=== PATIENT | male | born 1945 | race Caucasian/White ===

== ENCOUNTER 2017-06-02 01:49 | Inpatient (IN) | payer OTHER, MEDICARE ==
[~2017-06-02] VITALS: Ht 175.3 cm; Wt 119.7 kg
[~2017-06-02 01:49] MED LIST: ATIVAN0.5 M1 PO; BEVESPI AEROS10.7 GM IH; CARDIZEM CD240 M1 PO; COLACE100 M1 PO; COMBIVENT RESPIM4 GM INH; COSENTYX P150 MG/11 SC; CRESTOR10 M1 PO; FLONASE ALLERG9.9 ML NASB; GLUCOPHAGE1000 M1 PO; HYDROCHLOROTHIA25 M1 PO; LOPRESSOR50 M1 PO; MUCINEX600 M1 PO; OMEPRAZOLE40 M1 PO; PATADAY2.5 ML OPH; PRADAXA150 M1 PO; TEMOVATE30 GM TOP; TYLENOL325 M1 PO; ZANTAC150 M1 PO; ZYRTEC10 M3 PO
--- NOTE | 2017-06-02 11:55 | Admission Core Measures ---
Acute Coronary Syndrome (CM) ACS Core Measures Acute Coronary Syndrome Diagnosis No Congestive Heart Failure (NEW) CHF Core Measures Congestive Heart Failure Diagnosis No Cerebrovascular Accident (NEW) CVA Core Measures CVA/TIA Diagnosis No Venous Thromboembolism VTE Core Joe (View Protocol) VTE Risk Factors Surgery No Mechanical VTE Prophylaxis d/t N/A MechProphylax Ordered No VTE Pharm Prophylaxis d/t NA PharmProphylax ordered Problem List As ranked by this Provider includes Assessment & Plan 1. Status post total hip replacement, left HOME MEDS Home Med List Acetaminophen (Tylenol) 325 MG TABLET 4 TAB PO Q8P PRN PAIN (Reported) Cetirizine HCl (Zyrtec) 10 MG TABLET 1 TAB PO DAILY ALLERGY (Reported) Clobetasol Propionate (Temovate) 0.05 % CREAM..G. 1 MANAS TOP BID ITCHINESS ( Reported) Dabigatran Etexilate Mesylate (Pradaxa 150 MG) 150 MG CAPSULE 1 CAP PO BID AFIB (Reported) Diltiazem HCl (Cardizem Cd) 240 MG CAP.ER.24H 1 CAP PO DAILY BP (Reported) Docusate Sodium (Colace) 100 MG CAPSULE 1 CAP PO BID PRN STOOL SOFTENER ( Reported) Fluticasone Propionate (Flonase Allergy Relief) 50 MCG/ACTUATION SPRAY.SUSP 2 NS NASB DAILY ALLERGIES (Reported) Glycopyrrolate/Formoterol Fum (Bevespi Aerosphere Inhaler) 9 MCG-4.8 MCG HFA.AER.AD 2 INH IH BID ASTHMA (Reported) Guaifenesin (Mucinex) 600 MG TAB.ER.12H 1 TAB PO BID ALLERGIES (Reported) Hydrochlorothiazide 25 MG TABLET 1 TAB PO DAILY BP (Reported) Ipratropium/Albuterol Sulfate (Combivent Respimat Inhal [place]) 20 MCG-100 MCG/ ACTUATION MIST.INHAL 2 INH INH Q6-PRN PRN ASTHMA (Reported) Lorazepam (Ativan) 0.5 MG TABLET 1 TAB PO EVERY 6HRS- NEEDED ANXIETY ( Reported) Metformin HCl (Glucophage) 1,000 MG TABLET 1 TAB PO BID DIABETES (Reported) Metoprolol Tartrate (Lopressor) 50 MG TABLET 1 TAB PO BID BP (Reported) Olopatadine HCl (Pataday) 0.2 % DROPS 1 GTT OPH DAILY UNKNOWN (Reported) Omeprazole 40 MG CAPSULE.DR 1 CAP PO DAILY REFLUX (Reported) Ranitidine HCl (Zantac) 150 MG TABLET 1 TAB PO WITH DINNER REFLUX (Reported) Rosuvastatin Calcium (Crestor) 10 MG TABLET 1 TAB PO DAILY CHOLESTEROL ( Reported) Secukinumab (Cosentyx Pen (2 Pens)) 150 MG/ML PEN.INJCTR 150 MG SC Q30D PSORAITIC ARTHRITIS (Reported)
--- NOTE | 2017-06-02 11:56 | Surg Short-stay <48hrs Dis Sum ---
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 Procedure was tolerated well and patient was transferred to a general surgical floor. Diet was advanced and tolerated. Physical therapy performed evaluation and treatment. At time of hospital discharge, vital signs were stable, neurovascular status was intact and pain was controlled with the use of oral pain medications. Condition at Discharge: Stable Discharge Disposition: home health services Discharge instructions provided to patient/family: Yes Post discharge follow-up plan: [address] Bajwa
--- NOTE | 2017-06-02 12:02 | Patient Discharge Instructions ---
Discharge Instructions General Discharge Information You were seen/treated for: Previous left hip replacement You had these procedures: Left total hip revision Watch for these problems: Increasing pain despite the use of pain medication Increasing redness, warmth or swelling Drainage of any type from incision Inability to bear weight on operative leg Persistent nausea and vomiting Fever greater than 101.5 degrees Other wound care: Please keep wound clean and dry. No ointments or lotions of any type on or near incision. Your dressing will be changed by your nurse on the second day after your surgery. Daily dry dressing changes are recommended each day thereafter. Do not soak your wound- no tub baths/swimming. You may shower 48hr after surgery. Special Instructions: Stop taking Pradaxa for one week. Please take Eliquis, as prescribed for one week for clot prevention. Please resume Pradaxa one week after surgery. Diet Continue normal diet: Yes Recommended Diet: Diabetic Activity Full Activity/No Limits: No Activity Self Limited: Yes Activity Limited to: Weight bear as tolerated (toe touch weight bearing) Additional ACTIVITY Info: Use rolling walker as needed Acute Coronary Syndrome Inclusion Criteria At DC or during hospital stay patient has or had the following: ACS DIAGNOSIS No Discharge Core Measures Meds if any: Prescribed or Continued at Discharge Meds if any: NOT Prescribed or Continued at Discharge Congestive Heart Failure Inclusion Criteria At DC or during hospital stay patient has or had the following: CHF DIAGNOSIS No Discharge Core Measures Meds if any: Prescribed or Continued at Discharge Meds if any: NOT Prescribed or Continued at Discharge Cerebrovascular accident Inclusion Criteria At DC or during hospital stay patient has or had the following: CVA/TIA Diagnosis No Discharge Core Measures Meds if any: Prescribed or Continued at Discharge Meds if any: NOT Prescribed or Continued at Discharge Venous thromboembolism Inclusion Criteria VTE Diagnosis No VTE Type NONE VTE Confirmed by (Test) NONE Discharge Core Measures - Per Current guidelines, there needs to be overlap - treatment for the first 5 days of Warfarin therapy. - If discharged on Warfarin prior to 5 days of - overlap therapy, the patient will need to be - assessed for post discharge needs including - *Post discharge parental anticoagulation - *Warfarin and/or parental anticoagulation education - *Follow up date to check INR post discharge At least 5 days overlap therapy as Inpatient No Meds if any: Prescribed or Continued at Discharge Note: Overlap Therapy is Warfarin and Anticoagulant Meds if any: NOT Prescribed or Continued at Discharge
--- NOTE | 2017-06-02 16:21 | RADIOLOGY REPORT ---
EXAMINATION: XR HIP, LEFT CLINICAL INFORMATION: Postoperative COMPARISON: None TECHNIQUE: Two views of the left hip. FINDINGS: Prosthetic components of the left total hip arthroplasty are appropriately aligned. No periprosthetic fracture. Cerclage wire present at the intertrochanteric region. Soft tissue drain in place. Overlying skin leisa. Gas from recent surgery is present in the surrounding soft tissues. IMPRESSION: Normal postoperative appearance of the left total hip prosthesis.
[2017-06-02] MEDS ORDERED: MIRALAX17 G1 PO (16:23)
[2017-06-02] MEDS ORDERED: DILAUDID2 M1 PO (16:23)
[2017-06-02] MEDS ORDERED: ELIQUIS2.5 M1 PO (16:23)
[2017-06-02 16:50] VITALS: BP 142/68
--- NOTE | 2017-06-02 17:03 | Operative Report ---
Operative/Inv Procedure Report Surgery Date: 06/02/17 Name of Procedure: Left total hip revision Pre-Operative Diagnosis: Failed left total hip replacement Post-Operative Diagnosis: Same Estimated Blood Loss: 500 Surgeon/Cable Braider: Aydee ROBLES,Vijay Mathew Anesthesia: general endotracheal tube Operative/Procedure Note Note: Description of Procedure: The patient was taken to the operating room and positively identified. After induction of spinal anesthesia and administration of appropriate pre-operative antibiotics, the patient was positioned supine on the operating room table and all bony prominences were well padded. After performing a surgical timeout, the left lower extremity was prepped and draped in the usual sterile fashion. A direct anterior approach was made to the left hip. The incision was carried sharply through superficial soft tissues to the level of the fascia. Meticulous hemostasis was maintained with Bovie electocautery. The fascia over the tensor fascia kanchan muscle was opened sharply and the interval between the TFL and the sartorius was entered bluntly taking care to stay lateral to the lateral femoral cutaneous nerve. Retractors were placed around the femoral neck and the pericapsular fat was identified. The ascending branches of the lateral femoral circumflex vessels were identified and carefully coagulated. The anterior pseudocapsule was resected. The femoral neck was exposed and the hip was dislocated. Exposure continued until the femoral head could be disimpacted from the trunnion. Attention was then turned to the acetabulum. Trackers were placed from the acetabulum and exposure continued until the full rim of the acetabulum could be visualized. It was noted that the acetabular component was quite vertical. The cup was well fixed. A large osteolytic defect was noted superior to the cup laterally. Once the rim of the cup was fully exposed, the acetabulum was removed utilizing a acetabular removal instrumentation. He was done with a minimum of bony damage. All the osteolytic defects were curetted free of soft tissue and debris. The acetabular bed was extensively irrigated. The acetabular bed was then reamed up to a size 65 mm. A combination of cancellous cubes was reverse reamed into the osteolytic defects. A Dona Trident tritanium 66 mm hemispherical shell was then impacted into place. Multiple screws were used for supplemental fixation. The cup was then fit with a 36 mm 0 Trident X3 polyethylene insert. The hip was then trialed for leg length and stability. The trunnion was cleaned and fit with a new [employer] +4 Oxinium femoral head. The hip was reduced and put through a 4 inch most and found to be quite stable. The intra- articular space was copiously irrigated with sterile saline. The peripatellar soft tissues were infiltrated with Marcaine. A large Hemovac drain was left in the intra-articular space. Fascial layer was closed with interrupted #1 Vicryl sutures. The skin is approximated with interrupted 2-0 Vicryl and closed with leisa. A sterile dressing was applied, the patient was awakened, and taken to the recovery room in satisfactory condition.
--- NOTE | 2017-06-02 18:00 | PN- Orthopedic ---
Subjective Subjective: PT IN BED, MINIMAL PAIN. DENIES PARESTHESIAS. HAS NOT BEEN OUT OF BED YET. DENIES N/V, TOLERATING DIET. VOIDING NO CP/SOB, IS ON O2 BY NASAL CANULA. IS NOT ON HOME O2 Objective Vital Signs and I&Os NURSING TO TAKE VITALS AND CONTACT PA IF ABNORMAL Physical Exam: GEN- NAD RESP- COURSE CARDIAC- RRR ABD- OBESE, SOFT, NT EXT- LEFT HIP IS SOFT, DRESSING CLEAN AND DRY. DISTAL SENSORY AND MOTOR FUNCTION INTACT. 2+ DP PULSE Current Medications: Current Medications Sig/Janes Start time Last Medication Dose Route Stop Time Status Admin Acetaminophen 1,000 MG Q6P PRN 06/02 1700 AC IV 06/03 1657 Acetaminophen 0 .STK-MED ONE 06/02 1121 DC PO Acetaminophen 975 MG ONCE 06/02 0000 DC PO 06/02 2359 Apixaban 2.5 MG BID 06/02 2100 AC PO Atorvastatin Calcium 40 MG 1700 06/02 1700 AC PO Clobetasol Propionate 1 MANAS BID 06/02 2100 AC TOP Dextrose/Sodium 1,000 ML .[id number] 06/02 1700 AC 06/02 Chloride IV 1751 Diltiazem HCl 240 MG DAILY 06/03 0900 AC PO Docusate Sodium 100 MG DAILY NEEDED PRN 06/02 1700 AC PO Fluticasone 2 SPRAY DAILY 06/03 09 AC Propionate VIKTOR Guaifenesin 600 MG Q12 06/02 2100 AC PO Hydrochlorothiazide 25 MG DAILY 06/03 0900 AC PO Hydromorphone HCl 2 MG Q4P PRN 06/02 1700 AC 06/02 PO 1751 Hydromorphone HCl 4 MG Q4P PRN 06/02 1700 AC PO Insulin Aspart 0 TIDAC 06/02 1700 AC SC Loratadine 10 MG DAILY 06/03 0900 AC PO Lorazepam 0.5 MG Q6 PRN 06/02 1345 AC PO 06/09 1344 Metoprolol Tartrate 50 MG BID 06/02 2100 AC PO Morphine Sulfate 2 MG Q2P PRN 06/02 1700 AC IV Naphazoline HCl/ 1 GTT 4 TIMES/DAY 06/02 1700 AC Pheniramine Maleate OPH Omeprazole 40 MG DAILY AC 06/03 0700 AC PO Ondansetron HCl 4 MG Q6P PRN 06/02 1700 AC IV Oxycodone HCl 0 .STK-MED ONE 06/02 1121 DC PO Oxycodone HCl 10 MG ONCE 06/02 0000 DC PO 06/02 235 Polyethylene Glycol 17 GM DAILY NEEDED PRN 06/02 1700 AC PO Vancomycin HCl 1,500 MG 0300 06/03 0300 AC Sodium Chloride 250 ML IV 06/03 0439 Vancomycin HCl 1,500 MG ONCE 06/02 0000 DC Sodium Chloride 250 ML IV 06/02 2359 Assessment/Plan Assessment/Plan 71 YO M SP LEFT HIP REVISION OF CUP POD0. STABLE. PAIN MANAGEMENT PT- TTWB DVT PPX- ELIQUIS AND ALPS IVF OVERNIGHT- LIKELY WLL DC IN AM DIABETIC DIET REG HOME MEDS EXCEPT PRADAXA DRESSING CHANGE POD2 YOBANI-OP ABX- ONE MORE DOSE OF VANCO DUE DC PLANNING- MAY NEED STR VS [facility] Core Measures Venous Thromboembolism VTE Risk Factors Surgery No Mechanical VTE Prophylaxis d/t N/A MechProphylax Ordered No VTE Pharm Prophylaxis d/t NA PharmProphylax ordered
[2017-06-02 22:34] VITALS: BP 133/69
[2017-06-03 05:40] VITALS: BP 122/62
--- NOTE | 2017-06-03 07:39 | PN- Orthopedic ---
Subjective Subjective: minimal pain, no fever or illness. no acute events overnight. Objective Vital Signs and I&Os Vital Signs Date Time Temp Pulse Resp B/P B/P Pulse O2 O2 Flow FiO2 Mean Ox Delivery Rate 06/03 0540 98.6 68 20 122/62 92 CPAP 06/03 0000 CPAP 06/02 2259 76 133/69 06/02 2234 97.9 76 20 133/69 96 Nasal 4.0L Cannula 06/02 2024 Nasal 3.0L Cannula 06/02 1700 96 Nasal 3.0L Cannula 06/02 1650 94 Nasal 3.0L Cannula 06/02 1650 97.9 68 20 142/68 93 Room Air Intake & Output 06/03 0800 06/03 0000 06/02 1600 06/02 0800 06/02 0000 06/01 1600 Intake Total 1420 1115 Output Total 150 38 Balance 1270 1077 Intake, IV 700 375 Intake, Oral 720 740 Number 0 0 Bowel Movements Output, 150 38 Drainage Patient 264 lb Weight Weight Reported by Patient Measurement Method Physical Exam: wdwn aox3, nad HEENT- wnl no resp distress LLE- dressing cdi, hv in place. 150cc in 12 hrs, this drain was removed without complications minimal thigh swelling and tenderness NVI lle no calf pain, ROM as expected post op. no shortening or rotation. Results Last 48 Hours of Labs: Laboratory Tests 06/03 0707 Chemistry Sodium Pending Potassium Pending Chloride Pending Carbon Dioxide Pending Anion Gap Pending BUN Pending Creatinine Pending BUN/Creatinine Ratio Pending Hematology CBC w Diff Pending WBC Pending RBC Pending Hgb Pending Hct Pending MCV Pending MCH Pending MCHC Pending RDW Pending Plt Count Pending MPV Pending Assessment/Plan Assessment/Plan POD1 sp L FATOUMATA hip acetabular component revision, bone graft perioperative abx ween O2 PT, TTWB LLE follow am labs Dc IVF eliquis for dvt ppx until 1w post op, then resume pradaxa dressing change pod2 HV drain removed this am. encourage IS DC home when clears PT, may need ECF due to multiple medical comorbitities and TTWB status. Core Measures Venous Thromboembolism VTE Risk Factors Surgery No Mechanical VTE Prophylaxis d/t N/A MechProphylax Ordered No VTE Pharm Prophylaxis d/t NA PharmProphylax ordered
[2017-06-03 08:15] LABS: ABSOLUTE BASOPHIL COUNT 0 /CUMM (0.0-0.2); ABSOLUTE EOSINOPHIL COUNT 0 /CUMM (0.0-0.7); ABSOLUTE GRANULOCYTE CT 11.2 /CUMM (1.4-6.5); ABSOLUTE LYMPH COUNT 0.9 /CUMM (1.2-3.4); BASOPHIL % 0 % (0.0-2.0); EOSINOPHIL % 0.1 % (0-5); HEMATOCRIT 31.9 % (42-52); MEAN CORPUSCULAR HGB 28.4 PG (27.0-31.0); MEAN CORPUSCULAR HGB CONC 33.2 G/DL (33.0-37.0); MEAN CORPUSCULAR VOLUME 85.6 FL (80.0-94.0); PLATELET COUNT 195 /CUMM (130-400); RBC DISTRIBUTION WIDTH 13.8 % (11.5-14.5); RED BLOOD CELL CT 3.73 /CUMM (4.70-6.10); WHITE BLOOD CELL COUNT 13.1 /CUMM (4.8-10.8)
[2017-06-03 09:10] LABS: GRANULOCYTE % 85.7 % (42.2-75.2)
[2017-06-03 12:18] VITALS: BP 127/62
[2017-06-03 16:12] VITALS: BP 110/64
[2017-06-03 20:00] VITALS: BP 148/78
[2017-06-04 04:15] VITALS: BP 150/80
[2017-06-04 08:07] VITALS: BP 132/62
--- NOTE | 2017-06-04 11:34 | PN- Orthopedic ---
Subjective Subjective: No events overnight. Patient doing well this am, just walked with PT. Admits to mild left hip pain with movement, worsened with walking. No pain when sitting or lying down. Denies any numbness or tingling to left leg. Tolerating diet without issue. Denies any fevers, chills, chest pain, or SOB. Voiding freely, passing flatus, no bowel movement. Objective Vital Signs and I&Os Vital Signs Date Time Temp Pulse Resp B/P B/P Pulse O2 O2 Flow FiO2 Mean Ox Delivery Rate 06/04 0936 72 126/70 06/04 0807 98.6 72 18 132/62 96 Room Air 06/04 0415 98.0 63 20 150/80 92 CPAP 06/04 0000 CPAP 06/03 2101 66 148/78 06/03 2000 98.3 66 18 148/78 93 Room Air 06/03 1612 98.4 59 18 110/64 96 Room Air 06/03 1434 Room Air 06/03 1218 98.1 69 17 127/62 92 Room Air Intake & Output 06/04 1600 06/04 0800 06/04 0000 06/03 1600 06/03 0800 06/03 0000 Intake Total 240 750 994 6082 1115 Output Total 600 150 38 Balance -360 946 917 9192 1077 Intake, IV 0 700 375 Intake, Oral 240 850 500 720 740 Number 0 0 Bowel Movements Output, 150 38 Drainage Output, Urine 600 Patient 264 lb Weight Weight Reported by Patient Measurement Method Physical Exam: Afebrile, VSS. HEENT- wnl Cardiac: RRR LLE- dressing cdi, dressing taken down. Incision c/d/i, leisa in place. No evidence of dehiscence. No drainge or erythema noted. + mild thigh swelling. Mild incisional tenderness to palpation. New dressing applied. Motor and sensation grossly intact. No calf tenderness, negative Homans. + DP/PT pulse. Assessment/Plan Assessment/Plan POD#2 s/p L FATOUMATA hip acetabular component revision, bone graft. On RA. Tolerating diet, working with PT. - Diet as tolerated - Pain control and antiemetics prn - Encourage IS - PT, TTWB LLE - planning for d/c to rehab within next 24 hours - DVT ppx - Eliquis until 1w post op, then resume pradaxa Core Measures Venous Thromboembolism VTE Risk Factors Surgery No Mechanical VTE Prophylaxis d/t N/A MechProphylax Ordered No VTE Pharm Prophylaxis d/t NA PharmProphylax ordered
[2017-06-04 15:08] VITALS: BP 124/62
[2017-06-04 21:47] VITALS: BP 140/64
[2017-06-05 06:55] VITALS: BP 138/70
[2017-06-05 10:42] LABS: ABSOLUTE BASOPHIL COUNT 0.1 /CUMM (0.0-0.2); ABSOLUTE EOSINOPHIL COUNT 0.1 /CUMM (0.0-0.7); ABSOLUTE GRANULOCYTE CT 6.2 /CUMM (1.4-6.5); ABSOLUTE LYMPH COUNT 1.3 /CUMM (1.2-3.4); ABSOLUTE MONOCYTE COUNT 1.1 /CUMM (0.10-0.60); BASOPHIL % 0.8 % (0.0-2.0); GRANULOCYTE % 70.3 % (42.2-75.2); MEAN CORPUSCULAR HGB 28.5 PG (27.0-31.0); MEAN CORPUSCULAR HGB CONC 33.1 G/DL (33.0-37.0); MEAN CORPUSCULAR VOLUME 86.3 FL (80.0-94.0); MEAN PLATELET VOLUME 8.7 FL (7.4-10.4); PLATELET COUNT 169 /CUMM (130-400); RBC DISTRIBUTION WIDTH 14.6 % (11.5-14.5); RED BLOOD CELL CT 3.48 /CUMM (4.70-6.10); WHITE BLOOD CELL COUNT 8.8 /CUMM (4.8-10.8)
[2017-06-05 12:37] VITALS: BP 132/62
== END 2017-06-05 12:52 | DRG 467 ==
LOC: EDBD 01:49 → SDA 01:49 → EDBEDREQ 15:09 → ENRESERV 15:18 → ENTRNSPT 16:22 → EDTRNSPT 16:24 → EDTRNSPTSTS 16:24 → 2NB 16:37 → CMPTRNSPT 16:54 → ENPENDDIS 06-05 10:26 → 2NB 06-05 12:52
PROVIDERS: Physician Assistant; Physician Assistant Surgical
PROC: 0SRB06A Replacement of Left Hip Joint with Oxidized Zirconium on Polyethylene Synthetic Substitute, Uncemented, Open Approach (ICD-10-PCS; principal; 2017-06-02)
PROC: 0SPB0JZ Removal of Synthetic Substitute from Left Hip Joint, Open Approach (ICD-10-PCS; 2017-06-02)
DX: T84.031A Mechanical loosening of internal left hip prosthetic joint, initial encounter (principal); K51.90 Ulcerative colitis, unspecified, without complications; I48.2 Chronic atrial fibrillation; I10 Essential (primary) hypertension; E11.9 Type 2 diabetes mellitus without complications; J45.909 Unspecified asthma, uncomplicated; M45.9 Ankylosing spondylitis of unspecified sites in spine; G47.33 Obstructive sleep apnea (adult) (pediatric); K21.9 Gastro-esophageal reflux disease without esophagitis; Z79.84 Long term (current) use of oral hypoglycemic drugs; Z95.0 Presence of cardiac pacemaker; E78.00 Pure hypercholesterolemia, unspecified; E78.5 Hyperlipidemia, unspecified
CPT/HCPCS: 2NBP; 87070; 87075; 36415; 36592; 73502-LT; 82436; 97110-GO; 97116-GO; 97161-GP; 97530-GO; C9399; J0131; J0690; J0735; J1100; J2405; J3370; J7040; J7042